=== PATIENT | male | born 1980 | race Caucasian/White ===

== ENCOUNTER 2020-07-20 11:23 | Emergency (ER) | payer BC ==
[~2020-07-20] VITALS: Ht 177.8 cm; Wt 109.3 kg
[2020-07-20 13:10] LABS: BASO % 0.4 % (0.0-1.0); EOS # 0.2 10^3/uL (0.0-0.5); EOS % 2.2 % (0.0-3.0); HEMATOCRIT 51.4 % (42.0-52.0); HEMOGLOBIN 17.4 g/dl (13.5-17.5); LYMPH # 2.3 10^3/uL (1.5-5.0); LYMPH % 31.4 % (24.0-44.0); MEAN CORPUSCULAR HEMOGLOBIN 31.2 pg (27.0-33.0); MEAN CORPUSCULAR HGB CONC 33.9 g/dl (32.0-36.5); MEAN CORPUSCULAR VOLUME 92.3 fl (80.0-96.0); MONO # 0.5 10^3/uL (0.0-0.8); MONO % 7.3 % (0.0-5.0); NEUTROPHILS # 4.2 10^3/uL (1.5-8.5); NEUTROPHILS % 58.6 % (36.0-66.0); PLATELET COUNT, AUTOMATED 311 10^3/uL (150-450); RED BLOOD COUNT 5.57 10^6/uL (4.30-6.10); WHITE BLOOD COUNT 7.2 10^3/uL (4.0-10.0)
[2020-07-20 13:34] LABS: BLOOD UREA NITROGEN 19 MG/DL (7-18); CALCIUM LEVEL 9.6 MG/DL (8.5-10.1); CARBON DIOXIDE LEVEL 27 MEQ/L (21-32); CHLORIDE LEVEL 104 MEQ/L (98-107); CREATININE FOR GFR 0.98 MG/DL (0.70-1.30); GLOMERULAR FILTRATION RATE > 60.0 (>60); GLUCOSE, FASTING 79 MG/DL (70-100); POTASSIUM SERUM 4.4 MEQ/L (3.5-5.1); SODIUM LEVEL 138 MEQ/L (136-145)
[2020-07-20 13:40] LABS: MONO SCRN NEGATIVE (NEGATIVE)
[2020-07-20 15:06] LABS: FREE T4 0.93 NG/DL (0.76-1.46); LIPASE 166 U/L (73-393)
[2020-07-20] MEDS ORDERED: ISOVUE-370 76% 100ML VIAL As Ordered ONE (15:16)
[2020-07-20 15:49] LABS: CK-MB VALUE MASS 2.2 NG/ML (<3.6); CPK CREATINE PHOSPHOKINASE 149 U/L (39-308); MB/CK RELATIVE INDEX 1.48 (< OR =4); TROPONIN I < 0.02 NG/ML (< 0.10)
--- NOTE | 2020-07-20 16:04 | REPVR ---
PROCEDURE INFORMATION: Exam: XR Chest, 2 Views Exam date and time: 07/20/2020 3:48 PM Age: 39 years old Clinical indication: Chest pain; Additional info: Chest discomfort, elevated BP TECHNIQUE: Imaging protocol: XR of the chest Views: 2 views. COMPARISON: No relevant prior studies available. FINDINGS: Lungs: Hypoinflation and nonspecific 4 mm nodular density overlying the right lung base, superimposed over the right 7th anterior rib. Pleural space: Mild extrapleural thickening. No dependent pleural effusion. Heart/Mediastinum: No cardiomegaly. Bones/joints: Unremarkable. IMPRESSION: Hypoinflation and nonspecific 4 mm nodular density overlying the right lung base, superimposed over the right 7th anterior rib. Electronically signed by: Daniel Song On 07/20/2020 16:04:49 PM
--- NOTE | 2020-07-20 16:27 | REPVR ---
PROCEDURE INFORMATION: Exam: CT Angiography Chest With Contrast Exam date and time: 07/20/2020 4:06 PM Age: 39 years old Clinical indication: Shortness of breath; Additional info: Shortness of breath, dizziness TECHNIQUE: Imaging protocol: Computed tomographic angiography of the chest with intravenous contrast. 3D rendering (Not supervised by radiologist): MIP and/or 3D reconstructed images were created by the technologist. Radiation optimization: All CT scans at this facility use at least one of these dose optimization techniques: automated exposure control; mA and/or kV adjustment per patient size (includes targeted exams where dose is matched to clinical indication); or iterative reconstruction. Contrast material: ISOVUE 370; Contrast volume: 100 ml; Contrast route: INTRAVENOUS (IV); COMPARISON: CR Chest, 2 view PA, Lat 07/20/2020 3:48 PM FINDINGS: Pulmonary arteries: Opacification of the pulmonary arteries is somewhat limited by bolus timing with the attenuation coefficient in the main pulmonary artery of 178 HU versus an attenuation coefficient in the ascending thoracic aorta of 258 HU. No pulmonary embolus in the visualized central pulmonary arteries. Aorta: Normal caliber of the thoracic aorta. Lungs: Interstitial prominence. 4 mm right lower lobe granuloma, accounting for nodular density described on earlier chest radiographic report. Pleural space: Mild pleural thickening. Heart: Mild left ventricular hypertrophy. Lymph nodes: Calcified lymph nodes in association with chronic granulomatous disease. Upper abdomen: Asymmetric elevation of the right hemidiaphragm. Fatty infiltration of the liver. Questionable wall thickening in the nondistended stomach. Mild colonic wall thickening and diverticula. Bones/joints: No acute osseous pathology. IMPRESSION: 1. Opacification of the pulmonary arteries is somewhat limited by bolus timing. No pulmonary embolus in the visualized central pulmonary arteries. 2. Interstitial prominence and chronic granulomatous disease. 3. Additional findings as described above. Electronically signed by: Daniel Song On 07/20/2020 16:27:16 PM
--- NOTE | 2020-07-20 16:32 | REPVR ---
PROCEDURE INFORMATION: Exam: CT Abdomen And Pelvis With Contrast Exam date and time: 07/20/2020 4:06 PM Age: 39 years old Clinical indication: Abdominal pain; Localized; Left upper quadrant (luq); Additional info: Luq pain, firm palpable area, fm hist colon cancer TECHNIQUE: Imaging protocol: Computed tomography of the abdomen and pelvis with intravenous contrast. Radiation optimization: All CT scans at this facility use at least one of these dose optimization techniques: automated exposure control; mA and/or kV adjustment per patient size (includes targeted exams where dose is matched to clinical indication); or iterative reconstruction. Contrast material: ISOVUE 370; Contrast volume: 100 ml; Contrast route: INTRAVENOUS (IV); COMPARISON: No relevant prior studies available. FINDINGS: Liver: Fatty infiltration of the liver. Gallbladder and bile ducts: No cholelithiasis or biliary ductal dilatation. Pancreas: No pancreatic mass or ductal dilatation. Spleen: Splenic granuloma. Adrenals: Unremarkable adrenals. Kidneys and ureters: Normal renal morphology. No hydronephrosis. Stomach and bowel: Gastric wall thickening. Mild ileal wall thickening without small bowel dilatation. Prominent stool, scattered diverticula, and right colonic wall thickening. Appendix: No acute appendicitis. Intraperitoneal space: No free fluid. Vasculature: Normal caliber of the abdominal aorta. Pelvic vascular calcifications. Lymph nodes: Subcentimeter lymph nodes. Urinary bladder: Normal bladder morphology. Reproductive: Unremarkable as visualized. Bones/joints: L5 spondylolysis and grade 1 anterolisthesis of L5 on S1. Transitional vertebra at the lumbosacral junction. Soft tissues: Small fat containing inguinal hernia. IMPRESSION: 1. Gastric wall thickening. 2. Prominent stool, scattered diverticula, and right colonic wall thickening. 3. Additional findings as described above. Electronically signed by: Daniel Song On 07/20/2020 16:32:22 PM
[2020-07-20] MEDS ORDERED: LOSA25TA14 PO (18:14)
[2020-07-20] MEDS ORDERED: AMLO1TAB24 PO (18:14)
[2020-07-20] MEDS ORDERED: PROT1TAB2 PO (18:15)
[2020-07-20] MEDS ORDERED: COLA100C5 PO (18:15)
[2020-07-20 18:24] VITALS: BP 150/98
--- NOTE | 2020-07-20 19:43 | ECGEPIP ---
[facility] - ED Test Date: 2020-07-20 Pat Name: AYLA LY Department: Room: - Gender: Male [employer]: : 1980 Requested By: IRENA Farah PA-C Order Number: [id number] Reading MD: Yovani Ross Measurements Intervals [place] Rate: 52 P: 51 [place]: 199 QRS: 39 QRSD: 105 T: 9 QT: 419 QTc: 390 Interpretive Statements SINUS BRADYCARDIA NONSPECIFIC T WAVE ABNORMALITY(S) NO PRIORS FOR COMPARISON Electronically Signed on 07-20-2020 19:42:55 EDT by Yovani Ross
--- NOTE | 2020-07-22 08:34 | ED PDOC ---
Post-Departure Follow-Up radiology report faxed to Selena Grant MD Jul 22, 2020 08:34
[2020-07-22 15:08] LABS: Lyme Disease IgG/IgM Antibodie <0.91 ISR (0.00-0.90); Lyme Disease IgM Ab Quantitati <0.80 index (0.00-0.79)
== END 2020-07-20 18:41 | disposition home or self-care (01) ==
LOC: M ED 11:23
DX: R10.9 Unspecified abdominal pain (principal); K63.89 Other specified diseases of intestine; K31.89 Other diseases of stomach and duodenum; R06.02 Shortness of breath; L92.9 Granulomatous disorder of the skin and subcutaneous tissue, unspecified; R91.8 Other nonspecific abnormal finding of lung field; R00.1 Bradycardia, unspecified; R53.83 Other fatigue; I10 Essential (primary) hypertension; E78.5 Hyperlipidemia, unspecified; J45.909 Unspecified asthma, uncomplicated; Z79.899 Other long term (current) drug therapy
CPT/HCPCS: 36415; 71046; 71275; 74177; 80048; 81001; 82550; 82553; 83690; 84439; 84443; 84484; 85025; 86308; 86617; 93005; 99284; Q9967